=== PATIENT | female | born 1975 | race African-American/Black ===

== ENCOUNTER 2016-12-07 00:51 | Emergency (ER) | payer SELFPAY ==
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
== END 2016-12-07 02:15 | disposition home or self-care (01) ==
LOC: CED 00:51
DX: S16.1XXA Strain of muscle, fascia and tendon at neck level, initial encounter (principal); S29.012A Strain of muscle and tendon of back wall of thorax, initial encounter; S39.012A Strain of muscle, fascia and tendon of lower back, initial encounter; V49.50XA Passenger injured in collision with unspecified motor vehicles in traffic accident, initial encounter
CPT/HCPCS: 72040; 72072; 72100; 99284